=== PATIENT | male | born 1950 | race Caucasian/White ===

== ENCOUNTER 2019-06-23 00:34 | Day surgery (SDC) | payer OTHER, SELFPAY ==
[2019-04-26 14:00] VITALS: BP 144/84; PULSE 104; RESP 20; TEMP 37.2; O2SAT 99; BMI 27.1
--- NOTE | 2019-06-04 13:58 | PC.NURSE ---
SPOKE TO PT.STATES NO CHANGE IN HEALTH HX FROM 04/26/19
[2019-06-23] VITALS (10 sets, daily range): BP systolic 117–146; BP diastolic 63–85; PULSE 95–114; RESP 13–20; TEMP 36.3–36.8; O2SAT 94–100; BMI 27.1
[2019-06-23] MEDS: GENTAMICIN SULFATE INJ 440 MG in DEXTROSE 5% 100 ML 100 MG IVPB (11:00)
[2019-06-23] MEDS: LACTATED RINGERS 1,000 ML 30 ML IV CONT ×2 (11:10→14:51)
[2019-06-23] MEDS: metroNIDAZOLE 500 MG/ISO 100ML 500 MG/100 ML BAG 100 MG IVPB (11:30)
--- NOTE | 2019-06-23 11:41 | P.PNAN_ITS ---
Anes - Initial Pre Proc Eval Procedure: Operation Date: 06/23/19 12:00 Proposed Procedures p Insertion Inflatable Penile Prosthesis - Arielle Davies MD Date/Time: 06/23/19 11:41 Surgeon: Arielle Davies MD Pre Op Diagnosis: ED Patient Data Age: 69 Gender: M Height: 1.8 m Weight: 88.2 kg Last Vital Signs Temp 36.6 C 06/23/19 11:10 Pulse 100 06/23/19 11:10 Resp 20 06/23/19 11:10 BP 145/74 H 06/23/19 11:10 Pulse Ox 100 06/23/19 11:10 Allergies Allergy/AdvReac Type Severity Reaction Status Date / Time iodine Allergy Unknown Rash Verified 06/23/19 10:51 Home Medications Medication Instructions Recorded Confirmed Type amitriptyline 25 mg tablet 25 mg PO HS 03/17/19 06/23/19 History aspirin 81 mg tablet,delayed 81 mg PO DAILY 03/17/19 06/23/19 History release omega-3 fatty acids 1,000 mg 1,000 mg PO DAILY 03/17/19 06/23/19 History capsule multivitamin with minerals 1 tablet PO DAILY 04/26/19 06/23/19 History [Multiple Vitamin-Minerals] omeprazole magnesium [Prilosec OTC] 20 mg PO DAILY PRN 04/26/19 06/23/19 History Patient hx anesthesia problems: none Family hx anesthesia problems: none [facility] Past Medical History Medical History (Updated 06/22/19 @ 08:46 by Tony Acosta DO) Osteoarthritis Peptic ulcer disease Restless leg syndrome Surgical History Surgical History (Updated 06/22/19 @ 08:46 by Tony Acosta DO) History of repair of rotator cuff History of throat surgery kicked by horse in 1984 - constant hoarseness Family History Family History (Updated 09/23/18 @ 14:53 by DOCTOR UNKNOWN) Mother Patient's mother is , Onset Age: 92 Father Patient's father is , Onset Age: 95 Social History Social History Alcohol intake: current Anes - Eval Final PreProcedure Day of Procedure 06/23/19 11:41 Patient weight: overweight Heart: regular rate and rhythm Lungs: clear to auscultation and normal air movement Airway: Mallampati scale class II and other (told by ENT has narrowing vocal cord opening 2/2 to trauma/surgery) Neurological: alert and oriented Last oral intake: >/= 8 hours ASA classification: II Emergent: no Anesthetic plan: proceed Anesthesia type and monitoring: general LMA and standard monitoring Informed Consent: The patient's anesthetic plan and its attendant risks and benefits were discussed with the patient/family/POA. Questions were solicited and answers provided to the satisfaction of the patient/family/POA.
--- NOTE | 2019-06-23 12:15 | WPDHPUPDATE1 ---
History and Physical Update Update Date/Time: 06/23/19 12:15 History and Physical has been reviewed, including an updated exam of the patient. There are NO changes in the patient's condition. Risks, benefits, and alternatives have been discussed and questions answered. Patient agrees to proceed with procedure.
--- NOTE | 2019-06-23 15:51 | SUR.PHASEI ---
[phone] sbar faxed floor notified
--- NOTE | 2019-06-23 17:24 | ADMGEN ---
This patient, Mic Joy, was admitted to 3 [facility] Surg Room 304-02 at 1630. Patient/family oriented to hospital policies and general routines including ID bracelet, bed and alarms, visiting hours, pain management, procedures, bathroom and other care routines, personal items, smoking policy, room service/diet, and visiting hours. Valuables list has been completed. Information on how to activate the Rapid Response Team has been discussed. Patient/Family are encouraged to report perceived risks to care and to ask questions if they do not understand what they are told or what they should do.
[2019-06-23] MEDS: DOCUSATE SODIUM 100 MG CAPSULE PO (18:43)
--- NOTE | 2019-06-23 20:00 | OP_ITS ---
DATE OF PROCEDURE: 06/23/2019 PREOPERATIVE DIAGNOSIS: Erectile dysfunction. POSTOPERATIVE DIAGNOSIS: Erectile dysfunction. PROCEDURE PERFORMED: 1. Implantation of 3-piece penile prosthesis. 2. Artificial erection using from pharmacologic agent. INDICATION OF PROCEDURE: The patient is a very pleasant gentleman. He has elected proceed with a penile prosthesis today. He understands the risks and alternatives, and agrees to proceed. Risks of procedure including, not limited to, infection, bleeding, pain, injury to surrounding structures, need for additional operations, malfunction of the device, need for device exchange and anesthetic complications were discussed. He agrees to proceed. DESCRIPTION OF PROCEDURE: After informed consent was obtained, the patient was taken to the operating room, given preoperative IV antibiotics with vancomycin, gentamicin. Additionally, the patient has been taking oral antibiotics and 3-day Hibiclens wash at home. The patient was induced anesthesia. He was shaved. He was prepped with Betadine scrub and paint followed by ChloraPrep. We then placed drapes, those were exchanged when we reprepped with ChloraPrep. A 16-Romansh Barboza catheter was inserted with return of clear urine. We then performed an artificial erection using dilute lidocaine showing asymmetric and straight erection. At this point, a 3 cm midline penoscrotal incision was made. We dissected down to the corporal body, the right corpora was then opened and stay sutures were placed with 2-0 PDS. We then dilated it with Velez dilators up to #12 Velez. Irrigation was performed revealing no injury. We measured 9 cm proximal and 10.5 cm distally. We then performed identical procedure on the contralateral side measuring 10 cm proximally and 9.5 cm distally with a total measurement of 19.5 cm bilaterally. As the patient did not have a significant curvature in his request for the longus possible implant, we elected to place an LGX device. We then prepared the cylinders and pump, and then inserted them into the corporal bodies. Using a surrogate reservoir, we inflated with a nice cosmetic result, mild ventral curvature less than 15 degrees. We then deflated. We closed with pre-placed 2-0 PDS sutures. We then inflated again with an excellent cosmetic result. We then injected Marcaine into the right lower quadrant. We plan to dissect down to the external oblique fascia. The fascia was opened. We made a subrectus space, irrigated with antibiotic irrigant. We then placed 100 cc flat reservoir filled with 85 mL. We pre-placed 0 Vicryl sutures through the fascia, and then closed around the reservoir with a nice seating of the reservoir underneath the rectus muscle. We then made a subdartos pouch in the scrotum for the pump, it sat nicely in the midline. We then tunneled the tubing up to the abdominal incision, and then closed the hiatus with a 3-0 Vicryl suture. Using the Quick connect device, we connected the tubing from the pump to the reservoir. We then again cycled the device, it functioned appropriately, again with a nice result. At this point, we irrigated copiously. We then closed the scrotum with multiple layers of 3-0 Vicryl followed by a 3-0 Monocryl skin closure. We closed the abdominal incision with 2-0 Vicryl to the Ortiz, 3-0 Vicryl to the deep dermal layer, and a 4-0 Monocryl subcuticular closure. Glue was placed over all incisions. A compressive dressing was placed. The patient was awaken and taken to the recovery stable condition. IV FLUIDS: Per anesthesia. COMPLICATION: None. ESTIMATED BLOOD LOSS: 50 mL. FOLLOWUP: The patient will remain in the hospital overnight. He will have a voiding trial and dressing removal tomorrow. D I
[2019-06-23] MEDS: AMITRIPTYLINE HCL 25 MG TABLET PO (21:32)
[2019-06-23] MEDS: MORPHINE SULFATE 2 MG/ML INJ IV PUSH (23:55)
[2019-06-24 02:00] VITALS: BP 127/67; PULSE 95; RESP 18; TEMP 36.6; O2SAT 97
[2019-06-24] MEDS: MORPHINE SULFATE 2 MG/ML INJ IV PUSH ×4 (02:03→08:51)
[2019-06-24 06:00] VITALS: BP 139/63; PULSE 95; RESP 18; TEMP 36.7; O2SAT 95
[2019-06-24 07:00] LABS: Estimated CRCL calculation 64 ml/min; Estimated Glomerular Filt Rate > 60
[2019-06-24] MEDS: DOCUSATE SODIUM 100 MG CAPSULE PO (08:39)
[2019-06-24] MEDS: THERAPEUTIC MULTIVITAMINS/MINERALS TAB (*BKC) 1 TABLET PO (10:54)
--- NOTE | 2019-06-24 12:06 | WPDUROPN2 ---
Progress Note: A&P Assessment and Plan (1) Peyronie disease: Code(s): N48.6 - Induration penis plastica Status: Acute (2) Erectile dysfunction: Code(s): N52.9 - Male erectile dysfunction, unspecified Status: Acute Assessment and Plan: Remove fagan, remove dressing. Patient will need to urinate prior to discharge home. Ok to discharge home, pain is his concern at this time but appears to be under control with Everly which was given one hour ago, I instructed patient to elevated penis and scrotum and to apply scrotal support and wear consistently until follow up in office in two weeks. Post op instructions discussed and a paper copy given to patient. Subjective Subjective Date/Time Seen: 06/24/19 12:06 POD #1 IPP Implant Review of Systems Cardiovascular: Cardiovascular: Denies chest pain Respiratory: Respiratory: Reports no additional respiratory complaints Gastrointestinal: Gastrointestinal: Denies abdominal pain, Denies nausea and Denies vomiting Genitourinary: Genitourinary: Reports genital pain (post op pain at incisions sites), Denies dysuria, Denies flank pain, Denies urinary frequency and Denies urinary hesitancy Exam Resp: Effort & Inspection: normal respiratory effort Cardio: Rate: regular rate GI: GI Palp: No abdominal tenderness : Male General Exam: Yes normal external exam, No edema and Yes tenderness (at incision sites, all are well approximated, no drainage present) Penis: Yes normal penis, No edematous and No Localized penile swelling present Meatus: meatus normal Scrotum: scrotum normal, no ecchymosis and not edematous Testes: Testes normal Objective Data Vital Signs Vital Signs: Vital Signs - 24 hr 06/23/19 14:55 06/23/19 15:10 06/23/19 15:25 Temperature 97.3 F L Pulse Rate 96 95 99 Respiratory Rate 20 20 14 Blood Pressure 137/72 127/68 125/69 Pulse Oximetry 100 100 97 06/23/19 15:41 06/23/19 15:55 06/23/19 16:11 Temperature Pulse Rate 96 97 97 Respiratory Rate 13 14 18 Blood Pressure 117/72 134/72 142/81 H Pulse Oximetry 98 100 97 06/23/19 16:30 06/23/19 16:45 06/23/19 22:00 Temperature 98.3 F Pulse Rate 106 H 98 114 H Respiratory Rate 18 18 18 Blood Pressure 143/85 H 140/74 146/63 H Pulse Oximetry 100 100 94 06/24/19 02:00 06/24/19 06:00 Temperature 97.9 F 98.0 F Pulse Rate 95 95 Respiratory Rate 18 18 Blood Pressure 127/67 139/63 Pulse Oximetry 97 95 Intake/Output Intake/Output: Intake & Output 06/21/19 06/22/19 06/23/19 06/24/19 23:59 23:59 23:59 23:59 Intake Total 1401 450 Output Total 60 650 Balance 1341 -200 Meds/Results Medications: Active Medications Generic Name Dose Route Start Last Admin Trade Name Freq PRN Reason Stop Dose Admin Hydrocodone Bitart/Acetaminophen 1 tab 06/23/19 16:22 06/24/19 10:53 Everly 5-325 Mg PO 1 tab Q4H PRN Administration Pain Rated 1-6 Amitriptyline HCl 25 mg 06/23/19 21:00 06/23/19 21:32 Elavil PO 25 mg HS SAVANA Administration Docusate Sodium 100 mg 06/23/19 17:00 06/24/19 08:39 Colace Capsule PO 100 mg BID SAVANA Administration Gentamicin Sulfate/Sodium Chloride 80 mg in 50 mls @ 100 mls/hr 06/24/19 15:00 Gentamicin 80mg/Sod Chl 50 Ml IVPB 06/24/19 15:29 ONCE ONE Levofloxacin 500 mg 06/24/19 09:00 06/24/19 08:51 Levaquin Tab PO 500 mg DAILY SAVANA Administration Morphine Sulfate 2 mg 06/23/19 16:22 06/24/19 08:51 Morphine Sulfate Inj IV PUSH 2 mg Q2H PRN Administration Pain Rated 7-10 Multivitamins/Calcium 1 tablet 06/24/19 12:00 06/24/19 10:54 Therapeutic Multivitamins/Minerals PO 1 tablet DAILY@1200 SAVANA Administration Naloxone HCl 0.1 mg 06/23/19 16:22 Narcan IV PUSH Q2M PRN Opiate Reversal Pantoprazole Sodium 40 mg 06/23/19 16:46 Protonix PO QAM PRN Reflux Labs Labs: Laboratory Results - last 24 hr 06/24/19 06:02 Creatinine
[2019-06-24 14:00] VITALS: BP 117/91; PULSE 80; RESP 16; TEMP 36.6; O2SAT 95
--- NOTE | 2019-06-24 14:00 | WPDANESPN ---
Anes - Prog Note Post-Op Date/Time: 06/24/19 14:00 Cardiovascular status: normal Respiratory status: normal Airway patency: baseline Mental status: baseline Post-Op hydration status: normal Vital Signs: Last Vital Signs Temp 36.7 C 06/24/19 06:00 Pulse 95 06/24/19 06:00 Resp 18 06/24/19 06:00 BP 139/63 06/24/19 06:00 Pulse Ox 95 06/24/19 06:00 I/O: Intake & Output 06/23/19 06/24/19 06/24/19 23:59 07:59 15:59 Intake Total 840 450 Output Total 650 Balance 840 -200 Laboratory Tests 06/24/19 06:02 06/24/19 06:02 Creatinine 1.00 Estim Creat Clear Calc 64 Estimated GFR > 60 Post-procedural complaints: none Patient Feedback: Patient satisfied with anesthetic care.
--- NOTE | 2019-06-25 03:27 | DS_ITS ---
DATE OF DISCHARGE: 06/24/2019 PREOPERATIVE DIAGNOSIS: Erectile dysfunction. POSTOPERATIVE DIAGNOSIS: Erectile dysfunction. PROCEDURE PERFORMED: Per Dr. Arielle Davies, implantation of three-piece penile prosthetic, artificial erection using a pharmacologic agent. HOSPITAL COURSE: The patient tolerated the procedure well, was transferred to recovery in stable condition and to the floor for further observation. The patient continues to do well. Barboza was removed today and dressing. Incisions appear to be well approximated. No drainage present. The patient will urinate and then okay to be discharged home. The patient will continue all home medications except for aspirin and omega-3 fatty acids. Those will be held until next week. The patient will also go home on Colace, [place], and Bactrim. ACTIVITY: Resume as normal patient. DIET: Resume regular diet. FOLLOWUP: The patient will follow up in [address] Davies. Lynda I MT: Makeda
== END 2019-06-24 17:05 | disposition home or self-care (01) ==
LOC: ANHSURGERY 10:27 → ANH3MEDSUR 18:04
PROVIDERS: PCP Internal Medicine; Visit Provider Urology
PROC: (CPT 54405; principal; 2019-06-23 12:00)
DX: N52.9 Male erectile dysfunction, unspecified (principal); N48.6 Induration penis plastica; K27.9 Peptic ulcer, site unspecified, unspecified as acute or chronic, without hemorrhage or perforation; G25.81 Restless legs syndrome; M19.90 Unspecified osteoarthritis, unspecified site; Z79.82 Long term (current) use of aspirin
CPT/HCPCS: 54405; 54235; 36415; 82565; A9270; J0131; J1100; J1580; J2250; J2270; J2370; J2405; J2704; J3010; J3370; J7030; J7120

== ENCOUNTER 2019-09-24 11:17 | Outpatient (CLI) | payer OTHER, SELFPAY ==
[2019-09-24 12:00] LABS: Basophils Percent Auto 0.7 % (0.2-1.2); Eosinophils Absolute Auto 0.5 K/mm3 (0-0.3); Eosinophils Percent Auto 8.8 % (0-4.4); Hematocrit 44.3 % (42.0-52.0); Immature Granulocyte Absolute 0.01 K/mm3 (0.00-0.031); Immature Granulocyte Percent A 0.2 % (0-0.5); Mean Corpuscular HGB Conc 33.9 g/dl (32-36); Mean Corpuscular Hemoglobin 29.4 pg (26-34); Mean Corpuscular Volume 86.9 fl (80-100); Mean Platelet Volume 10.5 fl (7.4-10.4); Monocytes Absolute Auto 0.8 K/mm3 (0.1-0.6); Monocytes Percent Auto 13.4 % (2.6-8.5); Neutrophils Absolute Auto 2.7 K/mm3 (1.3-6.7); Neutrophils Percent Auto 45.9 % (45.5-73.1); Platelet Count Result 164 k/mm3 (150-375); Red Cell Distribution Width 13.4 % (11.5-14.5); White Blood Count 5.8 K/mm3 (4.5-10.0)
[2019-09-24 12:14] LABS: Alanine Aminotransferase 23 U/L (4-50); Albumin Level 4.4 g/dL (3.5-5.1); Alkaline Phosphatase 61 U/L (38-126); Aspartate Amino Transferase 33 U/L (17-59); Bilirubin,Total 0.7 mg/dL (0.2-1.3); Blood Urea Nitrogen 16 mg/dL (9-20); Calcium 8.9 mg/dL (8.4-10.2); Carbon Dioxide 28 mmol/L (22-30); Chloride 105 mmol/L (98-107); Cholesterol 255 mg/dL (0-200); Estimated Glomerular Filt Rate > 60; Glucose 88 mg/dL (75-110); HDL Direct 71 mg/dL; Potassium 4.5 mmol/L (3.4-5.0); Sodium 139 mmol/L (137-145); Triglycerides 94 mg/dL (<150)
[2019-09-24 12:25] LABS: LDL Cholesterol Direct 166 mg/dL
[2019-09-24 12:47] LABS: Vitamin D 25 Hydroxy 51.8 ng/mL
[2019-09-24 13:02] LABS: Add Urine Microscopic? YES; Appearance Urine Clear (Clear); Bacteria Urine Trace /hpf; Bilirubin Urine Negative (Negative); Blood Urine Negative (Negative); Color Urine Yellow (Yellow); Glucose Urine UA Negative (Negative); Ketones Urine Negative (Negative); Leukocyte Esterase Ur Negative LEU/UL (NEGATIVE); Mucus Urine Rare /lpf; Nitrate Urine Negative (Negative); Protein Urine Negative (Negative); RBC Urine 0-2 /hpf (0-2); Specific Grav Ur 1.017 (1.001-1.035); Squamous Epithelial Cell Urine Rare /hpf (Few); Urobilinogen Urine Negative mg/dL (<2.0); WBC Urine 0-3 /hpf (0-3)
[2019-09-24 13:19] LABS: Folic Acid > 20.0 ng/mL (2.76->20)
== END 2019-09-24 11:18 | disposition home or self-care (01) ==
PROVIDERS: Visit Provider Internal Medicine
DX: G25.81 Restless legs syndrome (principal); Z79.899 Other long term (current) drug therapy; Z12.5 Encounter for screening for malignant neoplasm of prostate
CPT/HCPCS: 36415; 80053; 80061; 81001; 82306; 82607; 82746; 84153; 84443; 85025

== ENCOUNTER 2021-06-16 17:17 | Emergency (ER) | payer OTHER, SELFPAY ==
--- NOTE | ~2021-06-16 | CT_ITS ---
EXAMINATION: CT cervical spine wo con DATE: 06/16/2021 19:00 INDICATION: Head injury TECHNIQUE: Computed tomography (CT) of the cervical spine was performed without intravenous contrast. The dose-length product (DLP) was 681.00 mGy-cm. Automated exposure control and iterative reconstruc tion technique were employed. COMPARISON: None FINDINGS: There is no fracture. There are 2 mm of anterolisthesis of C4 on C5 and 2 mm of retrolisthe sis of C5 on C6 and C6 on C7. There is severe loss of intervertebral disc space height at C5-6 and C6 -7 and moderate loss of intervertebral disc space height at C7-T1 and C3-4. The odontoid is intact. T here is severe multilevel facet and uncovertebral joint osteoarthritis. IMPRESSION: 1. Severe cervical spondylosis without acute findings. Reviewed, dictated and finalized at location F. PRIOR
--- NOTE | ~2021-06-16 | CT_ITS ---
EXAMINATION: CT brain wo con INDICATION: Head injury COMPARISON: None TECHNIQUE: Standard unenhanced head CT. The dose-length product (DLP) was 681.00 mGy-cm. The mA was a djusted according to patient size. Iterative reconstruction technique was employed. FINDINGS: There is no acute intraparenchymal hemorrhage. No evidence of mass lesion. No evidence of a cute infarction. There is focal low-attenuation of the left caudate, likely reflecting old infarct. T here is mild periventricular and subcortical hypodensity probably related to small vessel ischemic di sease. There is mild prominence of the sulci and ventricles related to cerebral atrophy. Intracranial calcified cerebral atherosclerosis is noted. There are no extra-axial collections. There is no mass effect or midline shift. The orbits and soft tissues are unremarkable. There is near complete opacifi cation of the left sphenoid sinus and moderate opacification of the right sphenoid sinus and ethmoida l air cells. IMPRESSION: 1. No acute intracranial abnormality. 2. Age related findings. 3. Sinus disease. Reviewed, dictated and finalized at location F. ENT CARE REPRESENTATIVE
--- NOTE | ~2021-06-16 | XR_ITS ---
EXAMINATION: XR ribs BI 3V w CXR 2V INDICATION: Rib pain after fall TECHNIQUE: PA and lateral views of the chest and 3 views of the left ribs were obtained. COMPARISON: None. FINDINGS: The lungs are free of acute opacities. There is no pleural effusion or pneumothorax. The ca rdiomediastinal silhouette is normal. There are bridging osteophytes at multiple levels in the spine, consistent with diffuse idiopathic skeletal hyperostosis (DISH). There are age indeterminate fractur es of the posterior left seventh and eighth ribs. IMPRESSION: 1. No acute cardiopulmonary abnormality. 2. Age indeterminate fractures of the posterior left seventh and eighth ribs. Reviewed, dictated and finalized at location F. DING SUPERVISOR
[2021-06-16 17:19] VITALS: BP 155/73; PULSE 97; RESP 17; TEMP 36.3; O2SAT 100
--- NOTE | 2021-06-16 18:03 | ED.FALL ---
HPI - Fall General Chief Complaint: Fall <Alexus Saldana APRN - Last Filed: 06/17/21 20:40> Stated Complaint: fall <Alexus Saldana APRN - Last Filed: 06/17/21 20:40> Time Seen by Provider: 06/16/21 17:29 <Alexus Saldana APRN - Last Filed: 06/17/21 20:40> Source: patient <Alexus Saldana APRN - Last Filed: 06/17/21 20:40> Mode of arrival: ambulatory <Alexus Saldana APRN - Last Filed: 06/17/21 20:40> Limitations: no limitations <Alexus Saldana APRN - Last Filed: 06/17/21 20:40> History of Present Illness HPI Narrative: 71-year-old male presents today post fall. Patient states he was walking didn't see the ice and slipped. Patient fell backwards hitting his head and back. Patient states pain intensity wavers. Currently tolerable at the time. Patient is currently on daily aspirin but denies any other blood thinners. Patient with pain to posterior head and mid back radiating to chest. Patient states pain increases with deep breath. Patient with history of rib fractures in the past and states this feels similar. <Alexus Saldana APRN - Last Filed: 06/17/21 20:40> Related Data Home Medications: Home Medications Medication Instructions Recorded Confirmed amitriptyline 25 mg tablet 25 mg PO HS 03/17/19 05/04/20 aspirin 81 mg tablet,delayed 81 mg PO DAILY 03/17/19 05/04/20 release omega-3 fatty acids 1,000 mg 1,000 mg PO DAILY 03/17/19 05/04/20 capsule multivitamin with minerals 1 tablet PO DAILY 04/26/19 05/04/20 [Multiple Vitamin-Minerals] PreserVision AREDS-2 1 tablet PO BID 06/23/19 05/04/20 <Alexus Saldana APRN - Last Filed: 06/17/21 20:40> Allergies/Adverse Reactions: Allergies Allergy/AdvReac Type Severity Reaction Status Date / Time iodine Allergy Mild Rash Verified 05/04/20 13:40 <Alexus Saldana APRN - Last Filed: 06/17/21 20:40> Review of Systems Review of Systems: CONSTITUTIONAL: Denies fever, chills, or sweats. EYES: Denies visual changes, redness, or discharge. ENT: Denies rhinorrhea, congestion, sore throat, or otalgia. CARDIOVASCULAR: Positive for rib pain. Denies palpitations, or edema. RESPIRATORY: Denies cough or dyspnea. GASTROINTESTINAL: Denies abdominal pain, nausea, vomiting, or diarrhea. GENITOURINARY: Denies dysuria or hematuria. SKIN: Denies rash or itching. MUSCULOSKELETAL: Positive for mid back pain. Denies joint pain, or myalgia. NEUROLOGIC: Denies headache, numbness, dizziness, or weakness. PSYCHIATRIC: Denies anxiety or depression. <Alexus Saldana APRN - Last Filed: 06/17/21 20:40> PMFSH Past Medical History Medical History: Medical History Alcohol use Osteoarthritis Peptic ulcer disease Restless leg syndrome <Alexus Saldana APRN - Last Filed: 06/17/21 20:40> Surgical History Surgical History: Surgical History History of repair of rotator cuff History of throat surgery kicked by horse in 1984 - constant hoarseness <Alexus Saldana APRN - Last Filed: 06/17/21 20:40> Family History Family History: Family History Mother Patient's mother is , Onset Age: 92 Father Patient's father is , Onset Age: 95 <Alexus Saldana APRN - Last Filed: 06/17/21 20:40> Social History Social History: Social History Alcohol intake: current Gender identity (if verbalized by the patient): Male <Alexus Saldana APRN - Last Filed: 06/17/21 20:40> Exam Narrative: GENERAL: Well-appearing, well-nourished, and in no acute distress. HEAD: Normocephalic, swelling noted posterior head. EYES: PERRLA and EOMI. ENT: Nares clear, no rhinorrhea or epistaxis. Mucous membranes moist. Oropharynx without tonsillar hypertrophy exudate or other lesions. Bilateral TMs pearly harris nonbulging NECK: Supple. No adenopath
[2021-06-16] MEDS: KETOROLAC 10 MG TABLET PO (20:03)
== END 2021-06-16 20:51 | disposition home or self-care (01) ==
PROVIDERS: Emergency Provider Nurse Practitioner Family; PCP Internal Medicine
DX: S09.90XA Unspecified injury of head, initial encounter (principal); S29.9XXA Unspecified injury of thorax, initial encounter; M19.90 Unspecified osteoarthritis, unspecified site; Z87.11 Personal history of peptic ulcer disease; G25.81 Restless legs syndrome; Z79.82 Long term (current) use of aspirin; W00.0XXA Fall on same level due to ice and snow, initial encounter; J32.9 Chronic sinusitis, unspecified; M47.812 Spondylosis without myelopathy or radiculopathy, cervical region
CPT/HCPCS: 70450; 71046; 71110; 72125; 99284; A9270; L0140

== ENCOUNTER 2021-07-31 14:14 | Outpatient (CLI) | payer OTHER, SELFPAY ==
[2021-08-04 20:12] LABS: Testosterone Free 61.6 pg/mL (30.0-135.0); Testosterone Total 321 ng/dL (250-1100)
== END 2021-07-31 14:15 | disposition home or self-care (01) ==
LOC: ANHLAB 14:16
PROVIDERS: PCP Internal Medicine; Visit Provider Emergency Medicine
DX: N52.9 Male erectile dysfunction, unspecified (principal); N48.6 Induration penis plastica
CPT/HCPCS: 36415; 84402; 84403

== ENCOUNTER 2022-06-03 13:01 | Outpatient (CLI) | payer OTHER, SELFPAY ==
[2022-06-03 13:50] LABS: Basophils Percent Auto 0.5 % (0.2-1.2); Eosinophils Absolute Auto 0.6 K/mm3 (0-0.3); Eosinophils Percent Auto 9.9 % (0-4.4); Hematocrit 43.6 % (42.0-52.0); Hemoglobin 14.6 g/dL (14.0-18.0); Immature Granulocyte Absolute 0.01 K/mm3 (0.00-0.031); Immature Granulocyte Percent A 0.2 % (0-0.5); Lymphocytes Absolute Auto 1.39 K/mm3 (0.9-3.2); Mean Corpuscular HGB Conc 33.5 g/dl (32-36); Mean Corpuscular Hemoglobin 28.6 pg (26-34); Mean Corpuscular Volume 85.5 fl (80-100); Mean Platelet Volume 10.5 fl (7.4-10.4); Monocytes Absolute Auto 0.7 K/mm3 (0.1-0.6); Monocytes Percent Auto 12.6 % (2.6-8.5); Neutrophils Absolute Auto 2.9 K/mm3 (1.3-6.7); Neutrophils Percent Auto 51.8 % (45.5-73.1); Platelet Count Result 174 k/mm3 (150-375); Red Cell Distribution Width 13.6 % (11.5-14.5); White Blood Count 5.6 K/mm3 (4.5-10.0)
[2022-06-03 14:22] LABS: Alanine Aminotransferase 27 U/L (6-50); Albumin Level 4.3 g/dL (3.5-5.1); Alkaline Phosphatase 59 U/L (38-126); Anion Gap 5 mmol/L (8-16); Aspartate Amino Transferase 33 U/L (17-59); Bilirubin,Total 0.8 mg/dL (0.2-1.3); Blood Urea Nitrogen 15 mg/dL (9-20); Calcium 8.6 mg/dL (8.4-10.2); Carbon Dioxide 27 mmol/L (22-30); Chloride 106 mmol/L (98-107); Estimated Glomerular Filt Rate > 60; Glucose 110 mg/dL (65-110); Potassium 4.3 mmol/L (3.4-5.0); Sodium 138 mmol/L (137-145)
[2022-06-03 14:35] LABS: Prostate Specific Antigen 3.6 ng/mL (< OR = 4.0)
== END 2022-06-03 13:02 | disposition home or self-care (01) ==
PROVIDERS: PCP Emergency Medicine; Visit Provider Emergency Medicine
DX: R53.83 Other fatigue (principal); E29.1 Testicular hypofunction; Z12.5 Encounter for screening for malignant neoplasm of prostate
CPT/HCPCS: 36415; 80053; 84153; 85025; G0103

== ENCOUNTER 2022-06-25 10:10 | Outpatient (CLI) | payer OTHER, SELFPAY ==
--- NOTE | ~2022-06-25 | US_ITS ---
EXAMINATION: US aorta DATE: 06/25/2022 10:54 INDICATION: Aneurysm. TECHNIQUE: Grayscale, color Doppler, and pulsed Doppler images of the aorta and common iliac arteries were obtained. COMPARISON: 04/01/2019. FINDINGS: The aorta is normal in caliber. The right common iliac artery is normal in caliber. The left common i liac artery is normal in caliber. IMPRESSION: 1. No abdominal aortic aneurysm. Reviewed, dictated and finalized at location K. UELS PLANT CONSTRUCTION WORKER
--- NOTE | ~2022-06-25 | CT_ITS ---
EXAMINATION:CT lung screening DATE: 06/25/2022 10:54 INDICATION: Tobacco use. 20 pack year history. TECHNIQUE: Computed tomography (CT) of the chest was performed without intravenous contrast. Automate d exposure control and iterative reconstruction technique were employed. The dose-length product (DLP ) was 118.73 mGy-cm. COMPARISON: None. FINDINGS: There are patchy peripheral airspace and groundglass opacities in the upper lobes and lower lobes. There is septal thickening in the inferior lungs. No bronchiectasis or honeycombing. No pleur al effusion. The heart size is normal. There are coronary artery calcifications. There are calcificat ions of aortic valve. There is ectasia of ascending aorta measuring 4.6 cm at the sinuses of Valsalva and 4.2 cm in the mid ascending aorta. There is mild mediastinal lymphadenopathy, likely reactive. T here are old healed bilateral rib fractures. There are bridging endplate osteophytes at multiple leve ls in the spine, consistent with diffuse idiopathic skeletal hyperostosis (DISH). There is severe cer vical spondylosis. IMPRESSION: 1. Lung-RADS category 0: Incomplete. Diffuse lung disease is most likely pneumonia. Noncontrast low-d ose chest CT is recommended in 3 months. Reviewed, dictated and finalized at location A. ESQUE DANCER IMPRESSION: 1. Lung-RADS category 0: Incomplete. Diffuse lung disease is most likely pneumo glo. Noncontrast low-dose chest CT is recommended in 3 months.
== END 2022-06-25 10:11 | disposition home or self-care (01) ==
LOC: ANHIMG 10:25
PROVIDERS: PCP Emergency Medicine; Visit Provider Emergency Medicine
DX: Z12.2 Encounter for screening for malignant neoplasm of respiratory organs (principal); Z87.891 Personal history of nicotine dependence; I72.9 Aneurysm of unspecified site; R91.8 Other nonspecific abnormal finding of lung field
CPT/HCPCS: 71271; 76775

== ENCOUNTER 2022-10-07 11:43 | Outpatient (CLI) | payer OTHER, SELFPAY ==
[2022-10-07 12:32] LABS: Alanine Aminotransferase 29 U/L (6-50); Albumin Level 4.4 g/dL (3.5-5.1); Alkaline Phosphatase 58 U/L (38-126); Anion Gap 5 mmol/L (8-16); Aspartate Amino Transferase 32 U/L (17-59); Bilirubin,Total 1.2 mg/dL (0.2-1.3); Blood Urea Nitrogen 15 mg/dL (9-20); Calcium 8.6 mg/dL (8.4-10.2); Carbon Dioxide 30 mmol/L (22-30); Chloride 104 mmol/L (98-107); Cholesterol 192 mg/dL (0-200); Estimated Glomerular Filt Rate > 60; Glucose 98 mg/dL (65-110); HDL Direct 81 mg/dL; Potassium 4.2 mmol/L (3.4-5.0); Sodium 139 mmol/L (137-145); Triglycerides 62 mg/dL (<150)
[2022-10-07 12:43] LABS: LDL Cholesterol Direct 90 mg/dL
[2022-10-11 12:02] LABS: Testosterone Total 394 ng/dL (250-1100)
[2022-10-11 12:13] LABS: Testosterone Free 74.2 pg/mL (6.0-73.0)
[2022-10-12 12:39] LABS: Vitamin D 1,25 (OH)2 Total 31 pg/mL (18-72); Vitamin D2 1,25 (OH)2 <8 pg/mL; Vitamin D3 1,25 (OH)2 31 pg/mL
== END 2022-10-07 11:44 | disposition home or self-care (01) ==
PROVIDERS: PCP Emergency Medicine; Visit Provider Emergency Medicine
DX: E55.9 Vitamin D deficiency, unspecified (principal); E78.5 Hyperlipidemia, unspecified; N52.9 Male erectile dysfunction, unspecified
CPT/HCPCS: 36415; 80053; 80061; 82652; 84402; 84403

== ENCOUNTER 2022-11-29 16:43 | Outpatient (CLI) | payer OTHER, SELFPAY ==
--- NOTE | ~2022-11-29 | XR_ITS ---
EXAM: XR lumbar spine 2-3V DATE: 11/29/2022 17:10 HISTORY: Lt Low back pain w/o inj . COMPARISON: None available. FINDINGS: 5 nonrib-bearing lumbar-type vertebral bodies. Pedicles intact. Normal vertebral body alig nment. Vertebral body heights preserved. Multilevel moderate and severe disc space narrowing. Multile gretel moderate marginal osteophytosis including bridging anterior and lateral osteophytes. Moderate mid and lower lumbar facet hypertrophy and sclerosis including interspinous narrowing at L4-5. No fractu re or dislocation. Aortic atherosclerotic calcification without evident aneurysm. IMPRESSION: Multilevel lumbar degenerative disc disease, severe at L4-5 and L5-S1. Multilevel moderate facet arthropathy. Reviewed, dictated and finalized at location K.
== END 2022-11-29 16:44 | disposition home or self-care (01) ==
LOC: ANHIMG 16:46
PROVIDERS: PCP Emergency Medicine; Visit Provider Emergency Medicine
DX: M51.36 Other intervertebral disc degeneration, lumbar region (principal); M51.37 Other intervertebral disc degeneration, lumbosacral region
CPT/HCPCS: 72100

== ENCOUNTER 2023-01-09 13:52 | Outpatient (CLI) | payer OTHER, SELFPAY ==
--- NOTE | ~2023-01-09 | CT_ITS ---
Non-contrast CT scan of the Abdomen and Pelvis and Lumbar Spine Clinical indication: Pain Technique: 2.5 mm axial scans were obtained through the abdomen and pelvis without intravenous or or al contrast. Axial noncontrast imaging of the lumbar spine was also performed. Sagittal and coronal r eformatted images were constructed. Dose reduction technique was used on this scan by utilizing autom ated exposure control and iterative reconstruction technique. The dose-length product (DLP) was 729.9 0 mGy-cm. Abdomen/pelvis Findings: Images through the lung bases reveal no abnormalities. There is no evidence of renal or ureteral calculi. The kidneys and the ureters are nondilated. The liver, spleen, pancreas, kidneys, and right adrenal gland appear normal. There is layering gallbl adder sludge and/or small stones. Probable small, hypodense left adrenal nodule, consistent with brien latanya. There are atherosclerotic calcifications of the aorta. There is no evidence of bowel obstruction. Images through the pelvis were performed. There is no evidence of ascites or lymphadenopathy. Urinary bladder unremarkable. Prostate gland is enlarged. Penile prosthesis present with reservoir. Lumbar spine findings: There is no fracture of the lumbar spine. There is 4 mm retrolisthesis of L5 o vu S1. There is advanced degenerative disc narrowing throughout the lumbar spine. There are anterior marginal osteophytes to the lumbar spine. At L1-L2, there is disc bulge and mild facet arthropathy. No cyn central canal stenosis clearly etienne dent. There is moderate to advanced bilateral neural foraminal narrowing, right worse than left. At L2-L3, there is disc bulge and facet arthropathy, probable mild central canal stenosis. There is a dvanced bilateral neural foraminal narrowing. L3-L4, there is disc bulge and moderate facet arthropathy, with probable moderate to possibly severe central canal stenosis. There is severe bilateral neural foraminal narrowing. At L4-L5, disc bulge and facet arthropathy are present with probable severe central canal stenosis. T here is severe bilateral neural foraminal narrowing. At L5-S1, disc bulge and facet arthropathy are present. There is probable moderate to severe central canal stenosis. There is severe bilateral neural foraminal compromise. Impression: No acute abnormality seen in the abdomen or pelvis. Gallbladder sludge and/or small stones. Probable small left adrenal adenoma. Severe degenerative spondylosis throughout the lumbar spine, as detailed above. 4 mm retrolisthesis of L5 over S1. Reviewed, dictated and finalized at location M. Impression: No acute abnormality seen in the abdomen or pelvis. Gallbladder sludge and/or small stones. Probable small left adrenal adenoma. Severe degenerative spondylosis throughout the lumbar spine, as detailed above. 4 mm retrolisthesis of L5 over S1.
== END 2023-01-09 13:53 | disposition home or self-care (01) ==
PROVIDERS: PCP Emergency Medicine; Visit Provider Emergency Medicine
DX: R10.9 Unspecified abdominal pain (principal); D35.02 Benign neoplasm of left adrenal gland; M47.896 Other spondylosis, lumbar region
CPT/HCPCS: 72131; 74176

== ENCOUNTER 2023-05-23 11:35 | Outpatient (CLI) | payer OTHER, SELFPAY ==
[2023-05-23 12:13] LABS: Alanine Aminotransferase 24 U/L (6-50); Albumin Level 4.2 g/dL (3.5-5.1); Alkaline Phosphatase 61 U/L (38-126); Anion Gap 5 mmol/L (8-16); Aspartate Amino Transferase 29 U/L (17-59); Blood Urea Nitrogen 19 mg/dL (9-20); Carbon Dioxide 30 mmol/L (22-30); Chloride 104 mmol/L (98-107); Cholesterol 185 mg/dL (0-200); Estimated Glomerular Filt Rate > 60; Glucose 94 mg/dL (65-110); HDL Direct 67 mg/dL; Potassium 4.4 mmol/L (3.4-5.0); Sodium 139 mmol/L (137-145); Triglycerides 85 mg/dL (<150)
[2023-05-23 12:23] LABS: LDL Cholesterol Direct 93 mg/dL
[2023-05-23 12:31] LABS: Vitamin D 25 Hydroxy 99.3 ng/mL
[2023-05-27 13:37] LABS: Testosterone Free 55.2 pg/mL (30.0-135.0); Testosterone Total 310 ng/dL (250-1100)
== END 2023-05-23 11:36 | disposition home or self-care (01) ==
LOC: ANHLAB 11:36
PROVIDERS: PCP Emergency Medicine; Visit Provider Emergency Medicine
DX: E55.9 Vitamin D deficiency, unspecified (principal); K21.9 Gastro-esophageal reflux disease without esophagitis; E78.5 Hyperlipidemia, unspecified; N52.9 Male erectile dysfunction, unspecified
CPT/HCPCS: 36415; 80053; 80061; 82306; 84402; 84403

== ENCOUNTER 2023-07-08 14:12 | Outpatient (CLI) | payer OTHER, SELFPAY ==
--- NOTE | ~2023-07-08 | CT_ITS ---
CT Scan of the Chest without Contrast: Clinical Indication: Lung cancer screening, personal history of nicotine dependence Technique: Contiguous sections were acquired throughout the chest without intravenous contrast. Dose reduction technique was used on this scan by utilizing automated exposure control and iterative recon struction technique. The dose-length product (DLP) was 119.16 mGy-cm. COMPARISON: 06/25/2022 Findings: There is no evidence of any significant mediastinal, hilar or axillary lymphadenopathy. The mediastin al soft tissues appear normal. There is no evidence of pleural or pericardial effusion. The lungs are clear. No pulmonary nodules or infiltrates are noted. Images through the upper abdomen reveal no abnormalities. Impression: Lung RADS 1: Negative. 12 month follow-up screening CT advised. Reviewed, dictated and finalized at location . Impression: Lung RADS 1: Negative. 12 month follow-up screening CT advised.
== END 2023-07-08 14:13 | disposition home or self-care (01) ==
PROVIDERS: PCP Emergency Medicine; Visit Provider Emergency Medicine
DX: Z12.2 Encounter for screening for malignant neoplasm of respiratory organs (principal); Z87.891 Personal history of nicotine dependence
CPT/HCPCS: 71271

== ENCOUNTER 2023-07-09 13:06 | Outpatient (RCR) | payer OTHER, SELFPAY ==
--- NOTE | 2023-07-09 14:19 | PTOPEVAL1 ---
Assessment and note entered by Bunny Ayala Evaluation Information Assessment Status Evaluation Diagnosis dorsalgia Onset 05/27/23 Subjective Information Pt. reports that he has had on and off back pain since he can remember. He reports that he has had x-ray that revealed OA in his low back. He reports that pain is located in the middle of the low back and will come and go. He states that pain is increased with long periods of standing. He reports that he does not sleep well at night due to PTSD. He reports that attempting to lift something heavy can also increase his back pain. He states that pain is also noticeable with getting out of a prolonged seated position or getting out of bed in the morning. He reports that he completes all household tasks, just much more slowly and has to take breaks often. He reports that his goal is to reduce his low back pain. Reported Pain Level Pain Score 4: Self Report Assessment PT Clinical Summary Pt. is a 73 year old male who enters the clinic with a diagnosis of low back pain. He presents with impaired balance, impaired l.e. strength, impaired flexibility, impaired postural awareness and pain. Continued skilled PT is indicated in order to improve these areas to allow for improved IADL performance. Plan of Care Interventions Electrical Stimulation,Hot Pack/Cold Pack,Manual Therapy,Neuro Re-education,Patient/Caregiver Educati,Therapeutic Activities,Therapeutic Exercise PT Services Indicated Yes Treatment Frequency and 2x/week x 10 visits Duration These treatments will address the objective and functional deficits as defined above. The patient will be advanced safely and appropriately in order for the patient to progress towards his/her prior level of function. Additional exercises will be introduced and as well as a comprehensive home exercise program upon discharge, if needed, ?to ensure carryover of functional gains achieved in the clinic. This treatment plan has been reviewed and agreement upon by the patient.
--- NOTE | 2023-07-09 14:20 | OPREHPOC ---
Outpatient Therapy Plan of Care This is a Multidisciplinary Plan of Care that may contain components documented by all disciplines (PT, OT, and ST.) PT Problem 1 PT Problem #1 Knowledge Deficit PT Goal 1 Goal Pt. will be independent with a HEP addressing trunk mobility and core strength Target Visit 2 PT Problem 2 PT Problem #2 Impaired Balance PT Goal 1 Goal Pt. will increase tinetti score to 24 or greater indicating low fall risk. Target Visit 10 PT Problem 3 PT Problem #3 Impaired Flexibility PT Goal 1 Goal Pt. will present at 15 degrees from full knee extension on both right and left with the 90/90 test. PT Problem 4 PT Problem #4 Impaired Functional Mobil PT Goal 1 Goal Pt. will present with 10% limitation or less on the LEFS. Target Visit 10
--- NOTE | 2023-08-04 14:51 | PCPTNOTE ---
Pt no showed visit today. Pt was called, left message on day and time of next visit.
--- NOTE | 2023-08-06 14:14 | PCPTNOTE ---
Mr. Joy did not show for his scheduled appointment on this date. He has failed to return to the clinic since intial evaluation. He will be discharged on this date. Refer to intial evaluation for discharge status. Michele Eaton, PT
== END 2023-08-06 14:21 | disposition home or self-care (01) ==
LOC: ANHPT 13:06
PROVIDERS: PCP Emergency Medicine; Visit Provider Emergency Medicine
DX: M54.9 Dorsalgia, unspecified (principal); M19.90 Unspecified osteoarthritis, unspecified site
CPT/HCPCS: 97014; 97110; 97161; 99199; G0283

== ENCOUNTER 2023-08-11 15:31 | Outpatient (CLI) | payer OTHER, SELFPAY ==
--- NOTE | ~2023-08-11 | XR_ITS ---
EXAMINATION: XR wrist LT 2V DATE: 08/11/2023 15:43 INDICATION: Left wrist swelling. TECHNIQUE: 2 views of left wrist were obtained. COMPARISON: None. FINDINGS: There is scapholunate dissociation. No fracture. There is severe osteoarthritis of radiosca phoid joint, radiolunate joint, and lunate-capitate joint. There is severe osteoarthritis of distal r adioulnar joint. There is abutment ulna and lunate with bone remodeling, consistent with ulnolunate i mpaction syndrome. There are small loose bodies in the wrist. IMPRESSION: 1. 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 Reviewed, dictated and finalized at location E. IMPRESSION: 1. 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
== END 2023-08-11 15:32 | disposition home or self-care (01) ==
LOC: ANHIMG 15:34
PROVIDERS: PCP Emergency Medicine; Visit Provider Emergency Medicine
DX: M19.032 Primary osteoarthritis, left wrist (principal)
CPT/HCPCS: 73100

== ENCOUNTER 2023-09-05 14:34 | Outpatient (CLI) | payer OTHER, SELFPAY ==
--- NOTE | ~2023-09-05 | US_ITS ---
EXAMINATION: US soft tissue UE LT DATE: 09/05/2023 14:56 INDICATION: Left wrist mass. TECHNIQUE: Multiple grayscale and Doppler ultrasound images of the left upper limb were obtained. COMPARISON: Left wrist radiographs 08/11/2023 FINDINGS: In the volar aspect of the wrist, there is a 2.2 x 1.7 x 1.7 cm mass of heterogeneous echog enicity with small cystic area. IMPRESSION: 1. 2.2 cm mass at the volar aspect of the wrist, most likely synovitis or hematoma. Reviewed, dictated and finalized at location E. IMPRESSION: 1. 2.2 cm mass at the volar aspect of the wrist, most likely synovitis or hemat latanya.
== END 2023-09-05 14:35 | disposition home or self-care (01) ==
PROVIDERS: PCP Emergency Medicine; Visit Provider Plastic Surgery
DX: R22.32 Localized swelling, mass and lump, left upper limb (principal)
CPT/HCPCS: 76882

== ENCOUNTER 2023-10-16 11:49 | Outpatient (CLI) | payer OTHER, SELFPAY ==
[2023-10-16 12:45] LABS: Alanine Aminotransferase 24 U/L (6-50); Albumin Level 4.4 g/dL (3.5-5.1); Alkaline Phosphatase 50 U/L (38-126); Anion Gap 3 mmol/L (4-12); Aspartate Amino Transferase 30 U/L (17-59); Blood Urea Nitrogen 22 mg/dL (9-20); Calcium 9.1 mg/dL (8.4-10.2); Carbon Dioxide 31 mmol/L (22-30); Chloride 106 mmol/L (98-107); Cholesterol 184 mg/dL (0-200); Estimated Glomerular Filt Rate > 60; Glucose 96 mg/dL (65-110); HDL Direct 82 mg/dL; Potassium 4.4 mmol/L (3.4-5.0); Sodium 140 mmol/L (137-145); Triglycerides 55 mg/dL (<150)
[2023-10-16 12:56] LABS: LDL Cholesterol Direct 92 mg/dL
[2023-10-16 13:14] LABS: Prostate Specific Antigen 4.5 ng/mL (< OR = 4.0)
== END 2023-10-16 11:50 | disposition home or self-care (01) ==
LOC: ANHLAB 11:52
PROVIDERS: PCP Emergency Medicine; Visit Provider Emergency Medicine
DX: Z12.5 Encounter for screening for malignant neoplasm of prostate (principal); E78.5 Hyperlipidemia, unspecified
CPT/HCPCS: 36415; 80053; 80061; 84153; G0103

== ENCOUNTER 2023-12-29 13:50 | Outpatient (CLI) | payer OTHER, SELFPAY ==
[2023-12-29 15:15] LABS: Prostate Specific Antigen 4.3 ng/mL (< OR = 4.0)
== END 2023-12-29 13:51 | disposition home or self-care (01) ==
PROVIDERS: PCP Emergency Medicine; Visit Provider Emergency Medicine
DX: Z12.5 Encounter for screening for malignant neoplasm of prostate (principal)
CPT/HCPCS: 36415; 84153; G0103

== ENCOUNTER 2024-03-23 13:28 | Outpatient (CLI) | payer OTHER, SELFPAY ==
[2024-03-23 14:00] LABS: Alanine Aminotransferase 24 U/L (6-50); Albumin Level 4.4 g/dL (3.5-5.1); Alkaline Phosphatase 56 U/L (38-126); Anion Gap 3 mmol/L (4-12); Aspartate Amino Transferase 32 U/L (17-59); Bilirubin,Total 1.2 mg/dL (0.2-1.3); Blood Urea Nitrogen 23 mg/dL (9-20); Calcium 9.1 mg/dL (8.4-10.2); Carbon Dioxide 30 mmol/L (22-30); Chloride 104 mmol/L (98-107); Cholesterol 205 mg/dL (0-200); Estimated Glomerular Filt Rate > 60; Glucose 97 mg/dL (65-110); HDL Direct 90 mg/dL; Potassium 4.3 mmol/L (3.4-5.0); Sodium 137 mmol/L (137-145); Triglycerides 68 mg/dL (<150)
[2024-03-23 14:13] LABS: LDL Cholesterol Direct 89 mg/dL
[2024-03-23 15:13] LABS: Vitamin D 25 Hydroxy > 126.0 ng/mL
[2024-03-27 10:18] LABS: Testosterone Free 91.5 pg/mL (30.0-135.0); Testosterone Total 429 ng/dL (250-1100)
== END 2024-03-23 13:29 | disposition home or self-care (01) ==
PROVIDERS: PCP Emergency Medicine; Visit Provider Emergency Medicine
DX: E55.9 Vitamin D deficiency, unspecified (principal); E78.5 Hyperlipidemia, unspecified; R79.89 Other specified abnormal findings of blood chemistry
CPT/HCPCS: 36415; 80053; 80061; 82306; 84402; 84403

== ENCOUNTER 2024-07-12 10:03 | Outpatient (CLI) | payer OTHER, SELFPAY ==
[2024-07-12 11:07] LABS: Alanine Aminotransferase 23 U/L (6-50); Albumin Level 4.3 g/dL (3.5-5.1); Alkaline Phosphatase 54 U/L (38-126); Anion Gap 9 mmol/L (4-12); Aspartate Amino Transferase 31 U/L (17-59); Blood Urea Nitrogen 20 mg/dL (9-20); Calcium 9.3 mg/dL (8.4-10.2); Carbon Dioxide 27 mmol/L (22-30); Chloride 103 mmol/L (98-107); Cholesterol 179 mg/dL (0-200); Estimated Glomerular Filt Rate > 60; Glucose 85 mg/dL (65-110); HDL Direct 85 mg/dL; Potassium 4.2 mmol/L (3.4-5.0); Sodium 139 mmol/L (137-145); Triglycerides 50 mg/dL (<150)
[2024-07-12 11:18] LABS: LDL Cholesterol Direct 68 mg/dL
--- OUTSIDE RECORDS SUMMARY | 2024-07-12 11:37 | XMS_ITS | CONTINUITY OF CARE DOCUMENT ---
Author Name johann wills Address Unknown Organization [facility] Address [address] [place] [address] Phone [phone] Care Team Providers Care Interlocking Pavement Installer Name Role Phone Manuelito Smith MD Unavailable STEFANO RAMIREZ MD Unavailable [phone] STEFANO RAMIREZ MD Unavailable [phone] INSURANCE PROVIDERS Payer name Policy type / Coverage type [place] [employer] ID [facility] Other [id number]
--- OUTSIDE RECORDS SUMMARY | 2024-07-12 11:37 | XMS_ITS | Encounter Summary ---
Author Organization [facility] Address [address] [place] [address] Phone Care Team Providers Care Assistant Cross Country Coach Name Role Phone Rasta Montes MD Primary Care Provider [phone] Encounter Details Date Type Department Care Team (Late st Contact Info) Description 12/06/2019 Transcribe Orders [facility] Admitting [address] [place] [address] [place] [address] [place] [address] Social History Tobacco Use Types Packs/Day Years Used Date Smoking Tobacco: Never Assessed Sex and Gender Information Value Date Recorded Sex Assigned at Not on file Legal Sex Male 11:47 PM CDT Gender Identity Not on file Sexual Orientation Not on file COVID-19 Exposure Response Date Recorded In the last month, have you been in contact with someone who was confirmed or suspected to have Coronavirus / COVID-19? No / Unsure 12/06/2019 9:46 AM CDT documented as of this encounter Plan of Treatment Not on file documented as of this encounter Visit Diagnoses Not on filedocumented in this encounter Care Teams Assistant Cross Country Coach Relationship Specialty Start Date End Date Rasta Montes MD [address], [address] [place] [address] PCP - General Internal Medicine 12/06/19 documented as of this encounter
--- OUTSIDE RECORDS SUMMARY | 2024-07-12 11:37 | XMS_ITS | Clinical Summary ---
Author Organization [facility] [email or web address] Address [address] [place] [address] Care Team Providers Care Shredder Picker Name Role Phone Eulalio Chao MD Primary Care Provider [phone] Source Comments [facility],non-owned Affiliates and Associated Physician Practices is amultiple site organization consisting of ambulatory clinics and hospital sitesin [place], [place], [place] and [place]. This disclosure is being madepursuant to the Care Everywhere program and may not contain all information available regarding this patient. Last updated 18.[facility] [email or web address] Allergies No known active allergies Medications * Be aware that medications may not be up to date on this document. Alwaysverify current medications with the patient. Medication Sig Dispensed Refills Start Date End Date Status amitriptyline (ELAVIL) 25 MG tablet 25 mg as directed 10/15/2016 Active sildenafil (REVATIO) 20 MG tablet Take 1 tablet by mouth as directed Take one (20 mg) to five (100 mg) tablets as needed up to one time daily. 30 tablet 2 06/15/2018 Active Social History Tobacco Use Types Packs/Day Years Used Date Smoking Tobacco: Never Smokeless Tobacco: Never Sex and Gender Information Value Date Recorded Sex Assigned at Not on file Gender Identity Not on file Sexual Orientation Not on file Last Filed Vital Signs Vital Sign Reading Time Taken Comments Blood Pressure 145/94 03/11/2018 1:27 PM PUBLIC HOUSING INTERVIEWER Pulse 98 03/11/2018 1:27 PM PUBLIC HOUSING INTERVIEWER Temperature - - Respiratory Rate - - Oxygen Saturation - - Inhaled Oxygen Concentration - - Weight 87.1 kg (192 lb) 08/19/2018 1:35 PM CDT Height 180.3 cm (5' 11 ) 08/19/2018 1:35 PM CDT Body Mass Index 26.78 08/19/2018 1:35 PM CDT Plan of Treatment Health Maintenance Due Date Last Done Comments ROMERO WolfAGES 45-75) - COL ON CA SCREENING 1950 COLON MONITORING 1948 COLONOSCOPY - COLON CA SCREENING 1948 CT COLONOGRAPHY - COLON CA SCREENING 1950 Colorectal Cancer Screening 1948 FIT - COLON CA SCREENING 1948 FLEX SIG - COLON CA SCREENING 1948 LIPID TESTING 1950 MEDICARE AWV 12 MONTHS 1948 HEPATITIS C SCREENING 04/15/1966 DTAP/TDAP/TD VACCINES (1 - Tdap) 1967 PNEUMOCOCCAL VACCINE 50+ (1 of 1 - PCV) 1998 ZOSTER VACCINE (1 of 2) 1998 SCREENING FOR DIABETES 11/04/2016 Respiratory Syncytial Virus (RSV) Vaccine Pt: or over 60 yrs (1 - 1-dose 75+ series) 2023 COVID-19 VACCINE (1 - 2023-2 5 season) 2023 INFLUENZA VACCINE (#1) 2023 DEPRESSION SCREENING 04/21/2024 MEDICARE AWV CALENDAR YEAR 2024 HEPATITIS B VACCINE Aged Out No longe r eligible based on patient's age to complete this topic HIB VACCINE Aged Out No longer eligi ble based on patient's age to complete this topic HPV VACCINE Aged Out No longer eligi ble based on patient's age to complete this topic MENINGOCOCCAL (Group B) VACC INE SHARED DECISION-MAKING Aged Out No longer eligibl e based on patient's age to complete this topic MENINGOCOCCAL GROUPS A/C/Y/W VACCINE Aged Out No longer eligible b ased on patient's age to complete this topic Care Teams Shredder Picker Relationship Specialty Start Date End Date Eulalio Chao MD [address] [place] [phone] PCP - General Internal Medicine 07/16/18
--- OUTSIDE RECORDS SUMMARY | 2024-07-12 11:37 | XMS_ITS | Clinical Summary ---
Author Organization [facility] Address [address] [place] [address] Phone Care Team Providers Care Nude Model Name Role Phone Rasta Montes MD Primary Care Provider [phone] Social History Tobacco Use Types Packs/Day Years Used Date Smoking Tobacco: Never Assessed Sex and Gender Information Value Date Recorded Sex Assigned at Not on file Legal Sex Male 11:47 PM CDT Gender Identity Not on file Sexual Orientation Not on file Plan of Treatment Health Maintenance Due Date Last Done Comments Hepatitis C Virus (HCV) Screening 1950 TdaP Immunization 1950 Pneumococcal Immunization (50+ years) (1 of 1 - PCV) 1998 Zoster Immunization (1 of 2) 1998 Respiratory Syncytial Virus (RSV) Immunization (Adult) (1 - 1-dose 75+ series) 2023 Influenza Immunization (#1) 12/21/202302/19, 02/22/2015, 02/16/2014, Additional history exists SARS-COV-2 Immunization ( season) 2023 04/12/2021, 07/10/2020, 06/01/2020 Hepatitis B Immunization Aged Out No longer eligible based on patient's age to complete this topic Meningococcal Immunization (ACWY) Aged Out No longer eligible based on patient's age to complete this topic Rotavirus Immunization Aged Out No lo nger eligible based on patient's age to complete this topic Care Teams Nude Model Relationship Specialty Start Date End Date Rasta Montes MD [address] [place] [address] PCP - General Internal Medicine 12/06/19
== END 2024-07-12 10:04 | disposition home or self-care (01) ==
PROVIDERS: PCP Emergency Medicine; Visit Provider Emergency Medicine
DX: E78.5 Hyperlipidemia, unspecified (principal); E55.9 Vitamin D deficiency, unspecified; R79.89 Other specified abnormal findings of blood chemistry
CPT/HCPCS: 36415; 80053; 80061; 82306; 84402; 84403

== ENCOUNTER 2024-10-20 17:20 | Outpatient (CLI) | payer OTHER, SELFPAY ==
--- NOTE | ~2024-10-20 | XR_ITS ---
XR hip LT min 2V Ordering provider: Bunny Painter MD History: . M25.552 - Pain in left hip . Comparison: None. FINDINGS: BONES: No acute fracture or dislocation. Small bony fragment is seen near to the superior acetabulum which may be acute or chronic. Follow-up advised. HIP JOINT SPACES: Moderate to severe osteoarthritic changes. PUBIC SYMPHYSIS: Normal. SOFT TISSUES: Normal. IMPRESSION: No acute osseous abnormality pelvis and left hip. Small bony fragment seen near to the superior acetabulum. Follow-up advised. Moderate to severe left hip osteoarthritic changes. Reviewed, dictated and finalized at location A.
--- OUTSIDE RECORDS SUMMARY | 2024-10-20 17:24 | XMS_ITS | Clinical Summary ---
Author Organization [facility] [employer] Address [address] [place] [address] Care Team Providers Care Catalogue Compiler Name Role Phone Bunny Painter MD Primary Care Provide r Allergies Active Allergy Reactions Criticality Noted Date Comments Iodinated Contrast Media Rash,Hives Medium 01/03/2016 Medications omega 3-cmj-ojc-fish oil 100-150-750 mg capsule Take 1 Caplet by mouth 2 (two) times a day. Active vitamins A,C,N-rfcs-qcfql r (ICAPS) 14,320-226-200 ehzi-et-lkrx capsule Take 2 capsules by mouth daily Active amitriptyline (ELAVIL) 25 mg tablet Take 1 tablet (25 mg total) by mouth 2 (two) times a day. 60 tablet 2 8 Active sildenafil, antihypertensive , (REVATIO) 20 mg tabletIndication s:Pulmonary Arterial Hypertension Take 1 tablet (20 mg total) by mouth 9 Active aspirin 81 mg enteric coated tablet Take 1 tablet (81 mg total) by mouth daily Active omeprazole (PriLOSEC) 10 mg capsule Take 1 capsule (10 mg total) by mouth as needed Active naproxen sodium (ALEVE ORAL) Take by mouth as needed Active multivitamin capsule Take 1 capsule by mouth daily Active urea (CARMOL) 40 % creamIndications :Hyperkeratosis Apply daily to feet/nails to smoothen skin/nails 85 g 3 2 Active Additional Information Patient not taking.Reported on 10/07/2023 ketoconazole (NIZORAL) 2 % creamIndications :Onychomycosis Apply daily to feet/nails for prevention of fungus 60 g 3 2 Active Additional Information Patient not taking.Reported on 10/07/2023 triamcinolone (KENALOG) 0.1 % creamIndications :Rash and other nonspecific skin eruption Apply topically 2 (two) times a day as needed (itchy rash on trunk/extremiti es) Stop when improved. Do not use on areas of expected fungus. 30 g 3 2 Active Additional Information Patient not taking.Reported on 10/07/2023 testosterone 20.25 mg/1.25 gram (1.62 %) gel in metered-dose pump APPLY ONE PUMP AMOUNT TOPICALLY ONCE DAILY OVER THE MAX AREA OF UPPER ARM AND SHOULDER. 3 Active rosuvastatin (CRESTOR) 10 mg tablet 0.5 tablets (5 mg total) 3 Active prazosin (MINIPRESS) 1 mg capsule 1 capsule (1 mg total) 3 Active rOPINIRole (REQUIP) 2 mg tablet Take 1 tablet (2 mg total) by mouth 2 (two) times a day 4 Active traZODone (DESYREL) 100 mg tablet Take 0.5 tablets (50 mg total) by mouth 4 Active Hospital, Clinic, or Other Facility Administered Medication Ordered Dose Route Frequency Start Date End Date Status aflibercept (EYLEA) 2 mg/0.05 mL intraocular injection 2 mgIndications:Exudative age-related macular degeneration of both eyes with active choroidal neovascularization (HCC) 2 mg 02/24/2018 Active aflibercept (EYLEA) 2 mg/0.05 mL intraocular injection 2 mgIndications:Exudative age-related macular degeneration of both eyes with active choroidal neovascularization (HCC) 2 mg intravitr R 06/16/2018 Active aflibercept (EYLEA) 2 mg/0.05 mL intraocular injection 2 mgIndications:Exudative age-related macular degeneration of both eyes with active choroidal neovascularization (HCC) 2 mg intravitr R 09/16/2018 Active aflibercept (EYLEA) 2 mg/0.05 mL intraocular injection 2 mgIndications:Exudative age-related macular degeneration of both eyes with active choroidal neovascularization (HCC) 2 mg 10/20/2018 Active aflibercept (EYLEA) 2 mg/0.05 mL intraocular injection 2 mgIndications:Exudative age-related macular degeneration of both eyes with active choroidal neovascularization (HCC) 2 mg intravitr R 11/24/2018 Active aflibercept (EYLEA) 2 mg/0.05 mL intraocular injection 2 mgIndications:Exudative age-related macular degeneration of both eyes with active choroidal neovascularization (HCC) 2 mg intravitr R 01/19/2019 Active aflibercept (EYLEA) 2 mg/0.05 mL intraocular injection 2 mgIndications:Exudative age-related macular degeneration of both eyes with active choroidal neovascularization (HCC) 2 mg 01/26/2019 Active aflibercept (EYLEA) 2 mg/0.05 mL intraocular injection 2 mgIndications:Exudative age-related macular degeneration of both eyes with active choroidal neovascularization (HCC) 2 mg intravitr R 03/30/2019 Active aflibercept (EYLEA) 2 mg/0.05 mL intraocular injection 2 mgIndications:Exudative age-related macular degeneration of both eyes with active choroidal neovascularization (HCC) 2 mg 04/16/2019 Active aflibercept syringe (EYLEA) 2 mg/0.05 mL intraocular syringe 2 mgIndications:Exudative age-related macular degeneration of both eyes with active choroidal neovascularization (HCC) 2 mg 06/01/2019 Active aflibercept (EYLEA) 2 mg/0.05 mL intraocular injection 2 mgIndications:Exudative age-related macular degeneration of both eyes with active choroidal neovascularization (HCC) 2 mg 07/20/2019 Active aflibercept syringe (EYLEA) 2 mg/0.05 mL intraocular syringe 2 mgIndications:Exudative age-related macular degeneration of both eyes with active choroidal neovascularization (HCC) 2 mg 09/07/2019 Active Active Problems Problem Noted Date Diagnosed Date PVD (posterior vitreous detachment), bilateral 1 Assessment & Plan (01/25/2020 11:02 AM CDT): Symptomatic OD, no RT Refraction disorder 11/02/2019 Assessment & Plan (11/02/2019 10:01 AM CDT): Subjective improvement at dist and near with refraction. Release updated glasses Rx. Recommend BF and transitions lenses. Age-related cataract of both eyes 10/28/2017 Assessment & Plan (06/16/2018 10:55 AM ALLERGIST/PEDIATRIC PULMONOLOGIST): -Not visually significant, continue to monitor for progression Nuclear cataract 04/22/2017 Closed fracture of larynx 04/18/2017 Hx of colonoscopy 04/18/2017 Exudative age-related macular degeneration 09/10 Assessment & Plan (09/14/2024 11:58 AM CDT): Las inj OS 06/15/24. Often goes about 5 months between injections. Today with persistent but improved SRF OS. Discussed injection OS versus close observation. He would like to observe. Discussed f/u in about 4-6 weeks but he was not aware Dr. Gutierrez wouldn't be here and would prefer to see Dr. Gutierrez specifically sooner. Will try to arrange for this to be done within the next couple of weeks. Return precautions discussed. Assessment & Plan (06/15/2024 12:05 PM ALLERGIST/PEDIATRIC PULMONOLOGIST): Las inj OS 01/06/24, Increased SRF OS today. Discussed injection OS OD has central GA no fluid, observe Assessment & Plan (01/06/2024 11:14 AM CDT): Las inj OS 07/22/23, Minimal SRF OS today. Discussed injection OS OD has central GA no fluid Assessment & Plan (10/07/2023 10:14 AM CDT): Last inj 08/13/23 OS, minimal SRF now that has improved since last visit, discussed observation vs inj. He is okay with observation Collins Assessment & Plan (07/15/2023 12:20 PM CDT): Last OD 07/24/21 now GA H)/o injections OU last OS 01/28/23; today with worsened subretinal fluid (SRF). Repeat injection left eye (OS) today. Discussed complement inhibitors and risks, will observe Assessment & Plan (05/20/2023 11:22 AM ALLERGIST/PEDIATRIC PULMONOLOGIST): H)/o injections OU last OS 01/28/23; improved SRF, now minimal Last OD 07/24/21 now GA Discussed complement inhibitors and risks, will observe Assessment & Plan (04/08/2023 11:46 AM ALLERGIST/PEDIATRIC PULMONOLOGIST): OD central atrophy, remote history of injections OS inj 01/28/23; mild central SRF no heme. Discussed JOSEE 5 year results, prefers observation and he will call if [facility] worse or new distortion Assessment & Plan (01/28/2023 11:31 AM CDT): GA oD h/o remote injections in the past (last 08/10) Left eye (OS) injection 11/10- at 12/11 was dry and we chose to observe but today with worsened subretinal fluid (SRF)- inject left eye (OS) today. Assessment & Plan (12/10/2022 11:42 AM CDT): GA oD h/o remote injections in the past Left eye (OS) injection about a month ago and dry; discussed PRN vs t/e and wants to observe Assessment & Plan (10/08/2022 11:59 AM CDT): Previously alternating injections q4-8w OD remains dry OS with recurrent SRF. Last WENDY 12 weeks ago Consider repeat WENDY OS today, patient not able to do injection and will return Assessment & Plan (08/20/2022 10:10 AM CDT): Previously followed [facility] for wet AMD OU Now receiving q8w alternating each eye every 4 weeks to start, patient prefers to avoid bilateral injectinos as he drives himself. Last visit WENDY OS with improved SRF. Minimal IR thickening but improved Today WENDY OD Vs observation discussed Assessment & Plan (07/18/2022 3:53 PM CDT): Previously followed at [facility] for wet AMD OU Patient reports about q12 interval each eye alternating q6w Patient agrees to start at q8w alternating each eye every 4 weeks to start, patient prefers to avoid bilateral injectinos as he drives himself WENDY OS today RTC 4 weeks WENDY OD Assessment & Plan (03/26/2022 11:28 AM ALLERGIST/PEDIATRIC PULMONOLOGIST): [facility] Has [facility]t in 2 weeks, minimal SRF OS. Can get injection then + atrophy OU Assessment & Plan (02/13/2021 8:33 AM CDT): OD 06/20/20 (7 months) OS 10/31/20 (3 months) Following T&E and JOSEE 5 year results for SRF. Last visit patient deferred injection, likely requires injections every q3-4 months at least for OS, OD has been stretched our further. Today with recurrent SRF OU, recommend resuming Eylea OS and return for OD for possible injection. Assessment & Plan (12/26/2020 12:14 PM CDT): OD 06/20/20 (6 months) OS 10/31/20 (8 weeks) Following T&E and JOSEE 5 year results for SRF, patient likely requires injection OS around 3-4 months. He opts for PRN treatment and defer injection today at 8 weeks following injection in the left eye. Will recheck in 5 weeks (would make it 13 weeks from last injection) Assessment & Plan (10/31/2020 11:53 AM CDT): Recurrent SRF OS; discussed injection will do today Assessment & Plan (09/26/2020 12:50 PM CDT): OD 06/20/20 (13 weeks) OS 07/25/20 Following T&E and JOSEE 5 year results for SRF, previously at 12 weeks. Could discuss converting to PRN protocol as he is at 12 weeks. Otherwise, plan for WENDY OD today and OS next month. We discussed with him and will follow in 3-4 weeks Assessment & Plan (07/25/2020 11:12 AM CDT): OD 3/2 OS 05/02 .. mild SRF today noncentral at 12 weeks, following T.E and JOSEE 5 year results for SRF Assessment & Plan (06/20/2020 11:08 AM ALLERGIST/PEDIATRIC PULMONOLOGIST): OD: last WENDY 03/21/20 (13 weeks ago), dry today. OS: last WENDY 05/02/20 (7 weeks ago) with resolved SRF. Dry today. Recommend WENDY OD today. Will likely need WENDY OS next visit. He is comfortable with the treat and extend approach which has worked well for him for his anti VEGF pharmacotherapy Assessment & Plan (05/02/2020 11:21 AM ALLERGIST/PEDIATRIC PULMONOLOGIST): OD: last WENDY 03/21/20 (6 weeks ago), with improved SRF, recently had minimal recurrent fluid out to 14 weeks OS: last WENDY 02/08/20 (13 weeks ago), with recurrent SRF, was dry last visit at 6 weeks and deferred injection. JOSEE 5 yr SRF data previously discussed Recommend WENDY OS today, bring back to eval OD. He is comfortable with the treat and extend approach which has worked well for him for his anti VEGF pharmacotherapy Assessment & Plan (03/21/2020 11:39 AM ALLERGIST/PEDIATRIC PULMONOLOGIST): OD: last WENDY 12/13 (14 weeks ago), with minimal SRF. Recommend WENDY today. OS: last WENDY 02/07, with improved SRF today. JOSEE 5 yr SRF data previously discussed Consider f/u in approximately 4 weeks to evaluate for possible injection OS Assessment & Plan (02/08/2020 11:01 AM CDT): OD: last WENDY 12/13, minimal SRF OS: last WENDY 10/11, + SRF. Recommend WENDY today. JOSEE 5 yr SRF data discussed He will return in 2-3 weeks for inj OD Assessment & Plan (01/25/2020 11:01 AM CDT): On q3mo WENDY regimen OU. OD: last WENDY 12/13, dry today OS: last WENDY 10/11, worsened SRF. Recommend WENDY today. JOSEE 5 yr SRF data discussed He will return in 2-3 weeks for inj OS Assessment & Plan (11/30/2019 11:07 AM CDT): last WENDY OS 10-12-19, WENDY OD 09-07-19 Minimal SRF OD; discussed inj vs observation; wants to return in 2 weeks OS dry today Collins Assessment & Plan (11/02/2019 10:01 AM CDT): Maintain scheduled f/u with Dr. Gutierrez. Assessment & Plan (10/12/2019 12:17 PM CDT): WENDY OD 09/07/19, fluid resolved almost completely WENDY OS 07/20/19 recurrent SRF Hyperreflective IR foci OU Assessment & Plan (09/03/2019 11:35 AM CDT): Status post (s/p) WENDY OS 07/20/19: SRFminimal Status post (s/p) WENDY OD 06/01/19: SRF recurrent with VMT and solitary IR cyst He cannot do an injection today and we will schedule OD in a 1-2 weeks, monitor with Collins call if worse Assessment & Plan (07/20/2019 11:07 AM CDT): Status post (s/p) WENDY OS 04/16/19: SRF recurrent, WENDY OS today Status post (s/p) WENDY OD 06/01/19: relatively dry today Assessment & Plan (06/01/2019 11:16 AM ALLERGIST/PEDIATRIC PULMONOLOGIST): Status post (s/p) WENDY OS 04/16/19: SRF resolving Status post (s/p) WENDY OD 03/30/19: increased SRF, recommend WENDY today or within a week Assessment & Plan (03/30/2019 11:58 AM ALLERGIST/PEDIATRIC PULMONOLOGIST): Recurrent SRF OU with cyst of IRF OD. Last WENDY 01/19/19 OD and 01/26/19 OS Recomment repeat WENDY OD today, schedule OS for Friday at [facility] (pt is out of town next week) Assessment & Plan (03/09/2019 1:13 PM ALLERGIST/PEDIATRIC PULMONOLOGIST): Status post (s/p) WENDY 8 weeks ago OD, 7 weeks ago OS Resolved fluid after last WENDY Appears to be on PRN regimen due to patient preference, observe today Assessment & Plan (01/19/2019 12:00 PM CDT): last injection right eye (OD) 8wks and 13wks OS Today left eye (OS) with trace SRF and right eye (OD) with improved but persistent SRF and IRF Should perform WENDY OD today and OS in 2 weeks Assessment & Plan (11/24/2018 11:02 AM CDT): last injection right eye (OD) was 09/15/18 left eye (OS) was 10/20/18 Today left eye (OS) dry and right eye (OD) with recurrent SRF Should perform WENDY OD today Assessment & Plan (10/20/2018 11:51 AM CDT): last injection right eye (OD) was 09/15/18 left eye (OS) was 06/16/18 right eye (OD) underwent injection 09/15/18 for recurrent subretinal fluid (SRF). Now dry today left eye (OS) with recurrent SRF Should perform WENDY OS today Assessment & Plan (09/15/2018 12:31 PM CDT): last injection right eye (OD) was 06/16/18 left eye (OS) was 02/24/18 - remains dry right eye (OD) underwent injection 06/16/18 for recurrent subretinal fluid (SRF). optic nerve (ON) follow up with optom 07/10/18, subretinal fluid (SRF) was resolved, bur recurrent again today Should perform WENDY OD today Assessment & Plan (06/16/2018 10:54 AM ALLERGIST/PEDIATRIC PULMONOLOGIST): last injection right eye (OD) was 08/05/17 and left eye (OS) was 02/24/18 Improvement in vision and SRF OS Right eye now with increased SRF; would recommend WENDY OD today since pt had improved in vision since WENDY OS Assessment & Plan (02/24/2018 2:12 PM ALLERGIST/PEDIATRIC PULMONOLOGIST): last injection right eye (OD) was 08/05/17 and left eye (OS) was 03/25/17 Very tr IRF stable right eye (OD) today However, left eye (OS) subretinal fluid (SRF) worsening Recommend WENDY left eye (OS) today Assessment & Plan (01/06/2018 2:49 PM CDT): last injection right eye (OD) was 08/05/17 and left eye (OS) was 03/25/17 Discussed mild subretinal fluid (SRF) left eye (OS), 2 IR cysts right eye (OD) Wants to observe Assessment & Plan (10/28/2017 3:22 PM CDT): H/o eylea both eyes (OU) with no fluid today :ast injection right eye (OD) was 08/05/17 and left eye (OS) was 03/25/17 Vitreous syneresis 11/15/2015 Assessment & Plan (01/25/2020 11:00 AM CDT): New release of VMA OD, no RT/RD on [employer] 360 today. Monitor ER warnings given Assessment & Plan (08/03/2019 12:38 PM CDT): Patient came into clinic today due to new onset floaters and a temporal flash in the left eye. No evidence of tears or detachments on 360 scleral depression. -Signs and symptoms of retinal detachment and tears discussed with the patient Assessment & Plan (06/16/2018 10:55 AM ALLERGIST/PEDIATRIC PULMONOLOGIST): -Stable, continue to monitor -Signs and symptoms of retinal detachment and tears discussed with the patient Attention deficit disorder (ADD) without hyperac tivity 03/11/2012 Restless legs syndrome 03/11/2012 Other acute myringitis, bilateral 03/02/2012 Encounters Date Type Department Care Team Description 10/19/2024 Telephone [facility] Ophthalmology [address] [place] [address] Eddie Gutierrez MD PhD requeting sooner appt 10/12/2024 Home Infusion [facility] Home Infusion Therapy [address] [place] [address] Flakita Joaquin 09/14/2024 11:00 AM CDT Office Visit [facility] Ophthalmology [address] [facility] [address]th [place] [address] Andres Phillips MD Exudative age-related macular degeneration of left eye with active choroidal neovascularization (HCC) 08/06/2024 Telephone [facility] Ophthalmology [address] [facility] [address] [place] [address] Eddie Gutierrez MD PhD from Last 3 Months Surgical History Surgery Date Site/Laterality Comments THROAT SURGERY Throat Surgery - (Added by TW Conv) Medical History Medical History Date Comments History of peptic ulcer disease Peptic Ulcer - (Added by TW Conv) Restless legs syndrome (RLS) Macular degeneration, age re lated, exudative (HCC) OU Cataract NSC OU Hypertension Family History Medical History Relation Name Comments Prostate cancer Brother Family histo ry of malignant neoplasm of prostate - (Added by Conv) Cancer Mother Family history of malignant neoplasm - (Added by Conv) Relation Name Status Comments Brother Mother Social History Tobacco Use Types Packs/Day Years Used Date Smoking Tobacco: Former Smokeless Tobacco: Never Alcohol Use Standard Drinks/Week Comments Not Currently 0 (1 standard drink = 0.6 oz pur e alcohol) Sex and Gender Information Value Date Recorded Sex Assigned at Not on file Legal Sex Male 12:10 AM ALLERGIST/PEDIATRIC PULMONOLOGIST Gender Identity Not on file Sexual Orientation Not on file Obstetrics History Last Filed Vital Signs Vital Sign Reading Time Taken Comments Blood Pressure 138/76 03/18/2021 5:12 PM ALLERGIST/PEDIATRIC PULMONOLOGIST Pulse 102 03/18/2021 5:12 PM ALLERGIST/PEDIATRIC PULMONOLOGIST Temperature 36.8 C (98.2 F) 03/18/2021 5:12 PM ALLERGIST/PEDIATRIC PULMONOLOGIST Respiratory Rate - - Oxygen Saturation 98% 03/18/2021 5:12 PM ALLERGIST/PEDIATRIC PULMONOLOGIST Inhaled Oxygen Concentration - - Weight 90.3 kg (199 lb) 03/18/2021 5:12 PM ALLERGIST/PEDIATRIC PULMONOLOGIST Height 179.1 cm (5' 10.5) 03/18/2021 5:12 PM CS T Body Mass Index 28.15 03/18/2021 5:12 PM ALLERGIST/PEDIATRIC PULMONOLOGIST Plan of Treatment Health Maintenance Due Date Last Done Comments Depression Screening 1950 Fall Risk Assessment 1950 DTaP/Tdap/Td Vaccine (1 - Tdap) 1959 Hepatitis B Screening 1966 Abdominal Aortic Aneurysm (A AA) Screen 2013 Well Visit 65+ 2013 Pneumococcal vaccine 65+ (2 of 2 - PCV) 04/29/2018 04/29/2017 Zoster Vaccine (2 of 2) 09/03/2018 07/09/2018 Influenza Vaccine (#1) 2024 0, 01/19/2018, 04/18/2017, Additional history exists Hepatitis C Screening Completed 11/17/2020 Procedures Procedure Name Priority Date/Time Associated Diagnosis Comments OCT, RETINA - OU - BOTH EYES Routine 09/14/2024 11:55 AM CDT Exudative age-related macular degeneration of left eye with active choroidal neovascularization (HCC) HEPATITIS C ANTIBODY Routine 11/17/2020 12:27 PM CDT High risk medication use from Last 3 Months or Most Recently Relevant to Health Maintenance Results * OCT, Retina - OU - Both Eyes (09/14/2024 11:55 AM CDT) Anatomical Region Laterality Modality Head Optical Coherenc e Tomography Narrative 09/14/2024 11:55 AM CDT Right Eye Quality was good. Scan locations included subfoveal. Progression has been stable. Left Eye Quality was good. Scan locations included subfoveal. Progression has improved. Notes OD: central involving GA with outer retinal tubulations, no fluid OS: PED with improved SRF us Andres Phillips MD OPHTH TOMOGRAPHY Final Res ult * Hepatitis C antibody (11/17/2020 12:27 PM CDT) Hep C Ab Nonreactive Nonreactive TANIA AYOUB Comment:Antibodies to HCV no t detected. Does NOT exclude the possibility of recent exposure to HCV. Blood specimen (specimen) 11/17/2020 12:27 PM CDT 11/17/2020 1:28 PM CDT us Hilary Dee MD LAB MICROBIOLOGY - GENERAL ORDERABLES Edited Result - Final TANIA AYOUB [facility] Department [place] [address] from Last 3 Months or Most Recently Relevant to Health Maintenance Insurance [facility] GENERIC COPAY ASS[facility] Care Teams Catalogue Compiler Relationship Specialty Start Date End Date Bunny Painter MD [address] [place] [address] PCP - General Emergency Medicine 07/24/21
--- OUTSIDE RECORDS SUMMARY | 2024-10-20 17:24 | XMS_ITS | Encounter Summary ---
Author Organization [facility] Address [address] [place] [address] Phone Care Team Providers Care Assistant Speech Language Pathologist Name Role Phone Rasta Montes MD Primary Care Provider [phone] Encounter Details Date Type Department Care Team (Late st Contact Info) Description 12/06/2019 Transcribe Orders [facility] Admitting [address] [place] [address] [place] [address] [facility] [address] [place] [address] Social History Tobacco Use Types Packs/Day Years [...] filedocumented in this encounter Care Teams Assistant Speech Language Pathologist Relationship Specialty Start Date End Date Rasta Montes MD [address], [address] [place] [address] PCP - General Internal Medicine 12/06/19 documented as of this encounter
--- OUTSIDE RECORDS SUMMARY | 2024-10-20 17:24 | XMS_ITS | Clinical Summary ---
Author Organization [facility] Address [address] [place] [address] Phone Care Team Providers Care Care Asst Name Role Phone Rasta Montes MD Primary Care Provider [phone] Social History Tobacco Use Types Packs/Day Years [...] (Adult) (1 - 1-dose 75+ series) 2023 SARS-COV-2 Immunization ( season) 2023 04/12/2021, 07/10/2020, 06/01/2020 Influenza Immunization (Season Ended) 2024 03/05/2016, 02/22/2015, 02/16/2014, Additional history exists Hepatitis B Immunization Aged Out No longer eligible based on patient's age to complete this topic Human Papillomavirus (HPV) Immunization Aged Out No longer eligible based on patient's age to complete this topic Meningococcal Immunization (ACWY) Aged Out No longer eligible based on patient's age to complete this topic Rotavirus Immunization Aged Out No lo nger eligible based on patient's age to complete this topic Care Teams Care Asst Relationship Specialty Start Date End Date Rasta Montes MD [address], [address] [place] [address] PCP - General Internal Medicine 12/06/19
--- OUTSIDE RECORDS SUMMARY | 2024-10-20 17:24 | XMS_ITS | Encounter Summary ---
Author Organization [facility] Address [address] [place] [address] Phone Care Team Providers Care Fence Gate Assembler Name Role Phone Bunny Painter MD Primary Care Provide r Reason for Visit * Reason Onset Date Comments requeting sooner appt 10/19/2024 Encounter Details Date Type Department Care Team (Late st Contact Info) Description 10/19/2024 Telephone 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 Informed him again about the NS policy & he understood. * Telephone Encounter - Ej Valencia - 10/20/2024 2:04 PM CDT Called pt to off a sooner appt with Dr Gutierrez on 10/26/24 or 11/09/24. Had to leave a msg to call my direct line back at [phone]. * Telephone Encounter - Garima Colon - 10/19/2024 3:17 PM CDT Pt called and r/s appt from 10.12.[address] Gutierrez in next couple of weeks. OCT mac OU. To 8. Pt states they are starting to have issues in OS. Their center vision is getting blurrier ongoing acouple of weeks ago. Please is requesting a sooner appt. Please call pt in regards to getting in sooner @ [phone] Pt is aware of no show policy documented in this encounter Plan of Treatment Not on file documented as of this encounter Visit Diagnoses Not on filedocumented in this encounter Care Teams Fence Gate Assembler Relationship Specialty Start Date End Date Bunny Painter MD [address] [place] [address] PCP - General Emergency Medicine 07/24/21 documented as of this encounter
--- OUTSIDE RECORDS SUMMARY | 2024-10-20 17:24 | XMS_ITS | Encounter Summary ---
Author Organization [facility] Address [address] [place] [address] Care Team Providers Care Recording Studio Intern Name Role Phone Bunny Painter MD Primary Care Provide r Encounter Details Date Type Department Care Team (Late st Contact Info) Description 10/12/2024 Home Infusion [facility] Home Infusion Therapy [address] [place] [address] Flakita Joaquin Social History Tobacco Use Types Packs/Day Years Used Date Smoking Tobacco: Former Smokeless Tobacco: Never Alcohol Use Standard Drinks/Week Comments Not Currently 0 (1 standard drink = 0.6 oz pur e alcohol) Sex and Gender Information Value Date Recorded Sex Assigned at Not on file 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
--- OUTSIDE RECORDS SUMMARY | 2024-10-20 17:24 | XMS_ITS | Clinical Summary ---
Author Organization [facility] Address [address] [facility] [place] [address] Care Team Providers Care Silo Filler Name Role Phone Eulalio Chao MD Primary Care Provider [phone] Source Comments [facility] [employer] [facility],non-owned Affiliates and Associated Physician Practices is amultiple site organization consisting of ambulatory clinics and hospital sitesin [place], [place], [place] and [place]. This disclosure is being madepursuant to the Care Everywhere program and may not contain all information available regarding this patient. Last updated 18.[facility] Allergies No known active allergies Medications * Be aware that medications may not be up to date on this document. Alwaysverify current medications with the patient. amitriptyline (ELAVIL) 25 MG tablet 25 mg [...] at Not on file Legal Sex Male 2:29 PM CDT Gender Identity Not on file Sexual Orientation Not on file Last Filed Vital Signs Vital Sign Reading Time Taken Comments Blood Pressure 145/94 03/11/2018 1:27 PM SCHOOL COOK Pulse 98 03/11/2018 1:27 PM SCHOOL COOK Temperature - - Respiratory Rate - - Oxygen Saturation - - Inhaled Oxygen Concentration - - Weight 87.1 kg (192 lb) 08/19/2018 1:35 PM CDT Height 180.3 cm (5' 11) 08/19/2018 1:35 PM CDT Body Mass Index 26.78 08/19/2018 1:35 PM CDT Plan of Treatment Health Maintenance Due Date Last Done Comments HEPATITIS C SCREENING 04/15/1966 DTAP/TDAP/TD VACCINES (1 - Tdap) 1967 PNEUMOCOCCAL VACCINE 50+ (1 of 1 - PCV) 1998 ZOSTER VACCINE (1 of 2) 1998 SCREENING FOR DIABETES 11/04/2016 Respiratory Syncytial Virus (RSV) Vaccine Pt: or over 60 yrs (1 - 1-dose 75+ series) 2023 COVID-19 VACCINE (1 - 2023-2 5 season) 2023 DEPRESSION SCREENING 04/21/2024 INFLUENZA VACCINE (Season Ended) 2024 HEPATITIS B VACCINE Aged Out No [...] on patient's age to complete this topic Insurance [facility] MEDICARE Care Teams Silo Filler Relationship Specialty Start Date End Date Eulalio Chao MD [address] [place] [address] PCP - General Internal Medicine 07/16/18
--- OUTSIDE RECORDS SUMMARY | 2024-10-20 17:24 | XMS_ITS | Referral Summary ---
Author Organization [facility] Address [address] [place] [address] Care Team Providers Care Activities Officer Name Role Phone Bunny Painter MD Primary Care Provide r Encounters Date Type Department Care Team Description 10/19/2024 Telephone [facility] Ophthalmology [facility] [place] [address] Eddie Gutierrez MD PhD requeting sooner appt 10/12/2024 Home Infusion [facility] Home Infusion Therapy [address] [place] [address] Flakita Joaquin 09/14/2024 11:00 AM CDT Office Visit [facility] Ophthalmology [facility] [address] [place] [phone] Andres Phillips MD 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 Active vitamins A,C,U-etvi-nogci r (ICAPS) 14,320-226-200 purc-ik-rkjj capsule Take 2 capsules by mouth daily [...] 10/28/2017 Assessment & Plan (06/16/2018 10:55 AM SKID ADZER): -Not visually significant, continue to monitor for [...] discussed. Assessment & Plan (06/15/2024 12:05 PM SKID ADZER): Las inj OS 01/06/24, Increased SRF OS [...] observe Assessment & Plan (05/20/2023 11:22 AM SKID ADZER): H)/o injections OU last OS 01/28/23; improved SRF, now minimal Last OD 07/24/21 now [place] Discussed complement inhibitors and risks, will observe Assessment & Plan (04/08/2023 11:46 AM SKID ADZER): OD central atrophy, remote history of injections [...] (08/20/2022 10:10 AM CDT): Previously followed [place] AMD OU Now receiving q8w alternating each eye every 4 weeks to start, patient prefers to avoid bilateral injectinos as he drives himself. Last visit WENDY OS with improved SRF. 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 OS: last WENDY 05/02/20 (7 weeks ago) with resolved SRF. Dry today. Recommend WENDY OD today. Will likely need WENDY OS next visit. 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 Last WENDY 01/19/19 OD and 01/26/19 OS Recomment repeat WENDY OD today, schedule OS for Friday at [facility] (pt is out of town next week) Assessment & Plan (03/09/2019 1:13 PM SKID ADZER): Status post (s/p) WENDY 8 weeks ago [...] CDT): last injection right eye (OD) was 2/26/19 left eye (OS) was 02/24/18 - remains dry right eye (OD) underwent injection 06/16/18 for recurrent subretinal fluid (SRF). optic nerve (ON) follow up with optom 07/10/18, subretinal fluid (SRF) was resolved, bur recurrent again today Should perform WENDY OD today Assessment & Plan (06/16/2018 10:54 AM SKID ADZER): last injection right eye (OD) was 08/05/17 and left eye (OS) was 02/24/18 Improvement in vision and SRF OS Right eye now with increased SRF; would recommend WENDY OD today since pt had improved in vision since WENDY OS Assessment & Plan (02/24/2018 2:12 PM SKID ADZER): last injection right eye (OD) was 08/05/17 [...] release of VMA OD, no RT/RD on HEATING UNIT INSTALLER 360 today. Monitor ER warnings given Assessment & Plan (08/03/2019 12:38 PM CDT): Patient came into clinic today due to new onset floaters and a temporal flash in the left eye. No evidence of tears or detachments on 360 scleral depression. -Signs and symptoms of retinal detachment and tears discussed with the patient Assessment & Plan (06/16/2018 10:55 AM SKID ADZER): -Stable, continue to monitor -Signs and symptoms of retinal detachment and tears discussed with the patient Attention deficit disorder (ADD) without hyperac tivity 03/11/2012 Restless legs syndrome 03/11/2012 Other acute myringitis, bilateral 03/02/2012 Social History Tobacco Use Types Packs/Day Years Used Date Smoking Tobacco: Former Smokeless Tobacco: Never Alcohol Use Standard Drinks/Week Comments Not Currently 0 (1 standard drink = 0.6 oz pur e alcohol) Sex and Gender Information Value Date Recorded Sex Assigned at Not on file Legal Sex Male 12:10 AM SKID ADZER Gender Identity Not on file Sexual Orientation Not on file Last Filed Vital Signs Vital Sign Reading Time Taken Comments Blood Pressure 138/76 03/18/2021 5:12 PM SKID ADZER Pulse 102 03/18/2021 5:12 PM SKID ADZER Temperature 36.8 C (98.2 F) 03/18/2021 5:12 PM SKID ADZER Respiratory Rate - - Oxygen Saturation 98% 03/18/2021 5:12 PM SKID ADZER Inhaled Oxygen Concentration - - Weight 90.3 kg (199 lb) 03/18/2021 5:12 PM SKID ADZER Height 179.1 cm (5' 10.5) 03/18/2021 5:12 PM CS T Body Mass Index 28.15 03/18/2021 5:12 PM SKID ADZER Plan of Treatment Not on file Procedures Procedure Name Priority Date/Time Associated Diagnosis [...] PM CDT) Hep C Ab Nonreactive Nonreactive [facility] Comment:Antibodies to HCV no t detected. Does NOT exclude the possibility of recent exposure to HCV. Blood specimen (specimen) 11/17/2020 12:27 PM CDT 11/17/2020 1:28 PM CDT us Hilary Dee MD LAB MICROBIOLOGY - GENERAL ORDERABLES Edited Result - Final [facility] Department [place] [address] from Last 3 Months or Most Recently Relevant to Health Maintenance Insurance [facility] [employer] [facility] Care Teams Activities Officer Relationship Specialty Start Date End Date Bunny Painter MD [address] [place] [address] PCP - General Emergency Medicine 07/24/21
== END 2024-10-20 17:21 | disposition home or self-care (01) ==
PROVIDERS: PCP Emergency Medicine; Visit Provider Emergency Medicine
DX: M16.12 Unilateral primary osteoarthritis, left hip (principal)
CPT/HCPCS: 73502